=== PATIENT | female | born 1950 ===

== ENCOUNTER 2017-01-06 14:04 | Emergency (ER) | payer SELFPAY ==
[2017-01-06] MEDS ORDERED: Rabies Vaccine, PCEC INJ* 1 ml IM ONE (15:14)
[2017-01-06] MEDS ORDERED: Rabies Immune Globulin 10 ML* 150 UNIT/ML VIAL IM ONE (15:15)
--- NOTE | 2017-01-06 15:19 | UC ---
Bite Injury/Animal HPI - HPI Summary HPI Summary: Advised by the health department to come here for rabies vaccine and immune globulin-as patient was exposed to a bat flying in her bed room - History of Current Complaint Chief Complaint: UCBiteInjury Stated Complaint: RABIES VACCINE Time Seen by Provider: 01/06/17 15:08 Hx Obtained From: Patient ?: No Severity Currently: None Pain Intensity: 0 Onset/Duration: Sudden Onset Type of Bite: Wild Animal - no bite-exposure in bedroom over night Has Animal Been Immunized?: N/A Aggravating Factor(s): Nothing Alleviating Factor(s): Nothing Associated Signs And Symptoms: Positive: Negative Animal Available for Observation: No Animal Control Notified: Yes - Allergies/Home Medications Allergies/Adverse Reactions: Allergies Allergy/AdvReac Type Severity Reaction Status Date / Time No Known Allergies Allergy Verified 01/06/17 14:37 Home Medications: Home Medications NK [No Home Medications Reported] 01/06/17 [History Confirmed 01/06/17] PMH/Surg Hx/FS Hx/Imm Hx Previously Healthy: Yes - Surgical History Surgical History: None - Family History Known Family History: Positive: None Family History: no reported issues in family lineage - Social History Occupation: Retired Lives: With Family Alcohol Use: None Substance Use Type: None Smoking Status (MU): Never Smoked Tobacco Review of Systems Constitutional: Negative Skin: Negative Eyes: Negative ENT: Negative Respiratory: Negative Cardiovascular: Negative Gastrointestinal: Negative Genitourinary: Negative Motor: Negative Neurovascular: Negative Musculoskeletal: Negative Neurological: Negative Psychological: Negative All Other Systems Reviewed And Are Negative: Yes Physical Exam Triage Information Reviewed: Yes Vital Signs: Initial Vital Signs Temp 98.2 F 01/06/17 14:31 Pulse 62 01/06/17 14:31 Resp 16 01/06/17 14:31 BP 117/73 01/06/17 14:31 Pulse Ox 100 01/06/17 14:31 Eye Exam: Normal ENT Exam: Normal Dental Exam: Normal Neck exam: Normal Neck: Positive: 1 Respiratory Exam: Normal Cardiovascular Exam: Normal Abdominal Exam: Normal Musculoskeletal Exam: Normal Neurological Exam: Normal Psychological Exam: Normal Skin Exam: Normal Bite Injury Course/Dx - Course Course Of Treatment: Rabies vaccine and RIG diven, refused tetanus at this time , tolerated well home in gaad condition no c/o - Differential Dx/Diagnosis Differential Diagnosis/HQI/PQRI: Puncture, Rabies Exposure Provider Diagnoses: Potential Rabies Exposure Discharge - Discharge Plan Condition: Stable Disposition: HOME Patient Education Materials: Rabies Vaccine (By injection), Rabies Immune Globulin (By injection), Rabies (ED) Referrals: No Primary Care Phys,NOPCP [Primary Care Provider] - Additional Instructions: Follow at the [facility] Office a planned for further vaccine
[2017-01-06] MEDS ORDERED: Rabies Immune Globulin 2 ML* 150 UNITS/ML VIAL ONE (15:51)
== END 2017-01-06 16:30 | disposition home or self-care (01) ==
LOC: UCEAST 14:04
DX: Z20.3 Contact with and (suspected) exposure to rabies (principal); Z48.02 Encounter for removal of sutures
CPT/HCPCS: 90375; 90471; 90675; 96372; 99201; G0463